=== PATIENT | male | born 1945 | race Caucasian/White ===

== ENCOUNTER → 2020-10-27 | Outpatient (CLI) | payer MEDICARE, OTHER ==
--- NOTE | 2020-10-27 12:56 | REPPI ---
INDICATION: ELEVATED PSA. COMPARISON: None. TECHNIQUE: Transrectal prostate sonography. FINDINGS: Trans rectal prostate sonography demonstrates unremarkable seminal vesicles. Prostate gland is heterogeneous, with calcifications and cystic changes noted. Glandular dimensions are measured at 3.7 x 2.1 x 4.8 cm with a calculated glandular volume of 19.5 ml. Transrectal sonographic guidance is provided to Dr. Nunes who performed trans rectal ultrasound guided needle biopsy procedure. IMPRESSION: Transrectal prostate sonographic findings as above. <Electronically signed by Liborio Weinstein > 10/27/20 [id number]
== END ==
LOC: M SMT PRO 09:48
PROVIDERS: ATTEND Urology
DX: C61 Malignant neoplasm of prostate (principal)
CPT/HCPCS: 55700; 76872; 76942; G0416

== ENCOUNTER → 2020-12-29 | Outpatient (CLI) | payer MEDICARE, OTHER ==
--- NOTE | 2020-12-29 13:05 | REPPI ---
INDICATION: elevated PSA. COMPARISON: None. TECHNIQUE: Transrectal prostate sonographic guidance. FINDINGS: Transrectal ultrasound guidance is provided to Dr. Nunes who performed transrectal ultrasound-guided fiducial marker placement procedure. IMPRESSION: Sonographic guidance. Procedural imaging. <Electronically signed by Liborio Weinstein > 12/29/20 9795
== END ==
LOC: M SMT PRO 09:13
PROVIDERS: ATTEND Urology
DX: C61 Malignant neoplasm of prostate (principal)